=== PATIENT | male | born 1995 | race Caucasian/White ===

== ENCOUNTER 2021-10-16 15:00 | Emergency (ER) | payer SELFPAY ==
[~2021-10-16] VITALS: Ht 175.3 cm; Wt 96.8 kg
[~2021-10-16 15:00] MED LIST: ASPIRIN LOW DOS81 M2 PO; BACTRIM DS1 TAB PO; BENADRYL 50MG C50 MG PO; CEPHALEXIN500 MG OR; CLOPIDOGREL75 MG PO; EXFORGE1 TA3 PO; HYDROCO/APAP1 T10 PO; INDERAL 20MG TA20 MG PO; MEDDOSEPAK PO; MIDODRINE10 MG PO; NO MEDS; PERCOCET 5/325M1 TAB OR; PROMETHAZINE HC25 MG PO
[2021-10-16 15:18] VITALS: BP 148/97
[2021-10-16] MEDS ORDERED: CEPHALEXIN500 MG PO (16:20)
[2021-10-16 16:45] VITALS: BP 148/97
== END 2021-10-16 16:54 | disposition home or self-care (01) | DRG 605 ==
LOC: ED 15:00
PROC: 0HQFXZZ Repair Right Hand Skin, External Approach (ICD-10-PCS; principal; 2021-10-16)
DX: S61.411A Laceration without foreign body of right hand, initial encounter (principal); W22.8XXA Striking against or struck by other objects, initial encounter; Y92.009 Unspecified place in unspecified non-institutional (private) residence as the place of occurrence of the external cause

== ENCOUNTER 2021-10-18 14:53 | Emergency (ER) | payer SELFPAY ==
[~2021-10-18] VITALS: Ht 175.3 cm; Wt 100.0 kg
[~2021-10-18 14:53] MED LIST changes: +CEPHALEXIN500 MG PO
[2021-10-18 15:20] VITALS: BP 174/147
[2021-10-18 15:22] VITALS: BP 142/91
[2021-10-18] MEDS ORDERED: ONDANSETRON4 MG PO (16:28)
[2021-10-18] MEDS ORDERED: MECLIZINE25 MG PO (16:28)
[2021-10-18 16:56] VITALS: BP 142/91
== END 2021-10-18 17:02 | disposition home or self-care (01) | DRG 90 ==
LOC: ED 14:53
DX: S06.0X0A Concussion without loss of consciousness, initial encounter (principal); S00.12XA Contusion of left eyelid and periocular area, initial encounter; Y04.0XXA Assault by unarmed brawl or fight, initial encounter; Y92.009 Unspecified place in unspecified non-institutional (private) residence as the place of occurrence of the external cause